=== PATIENT | male | born 1990 | race Caucasian/White ===

== ENCOUNTER 2019-08-17 13:35 | Emergency (ER) | payer BC, OTHER ==
[~2019-08-17] VITALS: Ht 182.9 cm; Wt 75.7 kg
[2019-08-17 15:28] VITALS: BP 127/73
[2019-08-17] MEDS ORDERED: KETOROLAC TROMETH 30 MG/ML 1ML VIAL IV ONE (16:15)
[2019-08-17] MEDS ORDERED: cefTRIAXone 1GM/50ML D5W 50 ML IV ONE (16:15)
[2019-08-17] MEDS ORDERED: CLINDAMYCIN 600MG IV 50 ML IV ONE (16:15)
== END 2019-08-17 18:03 | disposition home or self-care (01) ==
LOC: ER 13:35
DX: S91.104A Unspecified open wound of right lesser toe(s) without damage to nail, initial encounter (principal); L03.115 Cellulitis of right lower limb; Z88.0 Allergy status to penicillin; X58.XXXA Exposure to other specified factors, initial encounter; Y93.89 Activity, other specified; Y92.89 Other specified places as the place of occurrence of the external cause; Y99.8 Other external cause status
CPT/HCPCS: 73630; 87075; 96365; 96368; 96375; 99284; J0696; J1885; J3490

== ENCOUNTER 2019-08-18 13:59 | Emergency (ER) | payer BC ==
[~2019-08-18] VITALS: Ht 185.4 cm; Wt 75.7 kg
[2019-08-18 15:10] VITALS: BP 126/75
[2019-08-18] MEDS ORDERED: cefTRIAXone 1GM/50ML D5W 50 ML IV ONE (15:15)
[2019-08-18] MEDS ORDERED: LIDOCAINE 1% HCL (LOCAL ANESTH.) INJ 20ML MDV IJ ONE (15:15)
[2019-08-18] MEDS ORDERED: CLINDAMYCIN 600MG IV 50 ML IV ONE (16:30)
[2019-08-18] MEDS ORDERED: KETOROLAC TROMETH 30 MG/ML 1ML VIAL IV ONE (16:30)
[2019-08-18] MEDS ORDERED: ACETAMINOPHEN 500 MG TAB PO ONE (17:30)
== END 2019-08-18 17:47 | disposition home or self-care (01) ==
LOC: ER 13:59
DX: L03.116 Cellulitis of left lower limb (principal); L02.611 Cutaneous abscess of right foot; F17.210 Nicotine dependence, cigarettes, uncomplicated
CPT/HCPCS: 10060; 96365; 96367; 96375; 99284; J0696; J1885; J2001; J3490